=== PATIENT | female | born 1980 | race Caucasian/White ===

== ENCOUNTER 2016-07-09 09:15 | Observation (INO) | payer MEDICAID ==
[2016-07-09 09:44] LABS: RBC URINE < 1 /hpf (0-3); URINE BILIRUBIN NEGATIVE (NEGATIVE); URINE BLOOD NEGATIVE (NEGATIVE); URINE COLOR Yellow (YELLOW); URINE GLUCOSE (UA) NORMAL (Normal); URINE KETONE NEGATIVE (NEGATIVE); URINE LEUKOCYTE ESTERASE NEG Leu/uL (Negative); URINE PROTEIN NEGATIVE (NEGATIVE); URINE UROBILINOGEN NORMAL mg/dL (0.2-1.0); WBC URINE 1 /hpf (0-5)
[2016-07-09] MEDS ORDERED: Betamethasone Soluspan 30 mg/5mL Inj Susp IM SCH (11:30)
[2016-07-09] MEDS ORDERED: Prenatal Multivit/Folic Acid/Iron Tab PO SCH (11:30)
[2016-07-09] MEDS ORDERED: Lactated Ringer's 1,000 ML IV SCH (11:30)
[2016-07-09] MEDS ORDERED: Magnesium Sulfate 20 gm 500 ML IV SCH ×2 (12:00→15:00)
[2016-07-09 12:19] LABS: BASO % 0.4 % (0.0-2.0); EOS # 0.5 K/uL (0.0-0.7); EOS % 4.5 % (0.0-4.0); HEMATOCRIT 31.3 % (34.0-47.0); LYMPH # 1.8 K/uL (1.0-4.3); LYMPH % 15.5 % (20.0-40.0); MEAN CELL VOLUME 76.1 fL (81.0-99.0); MEAN CORPUSCULAR HEMOGLOBIN 23.7 pg (27.0-31.0); MEAN CORPUSCULAR HGB CONC 31.2 g/dL (33.0-37.0); MEAN PLATELET VOLUME 8.6 fL (7.2-11.7); MONO # 0.5 K/uL (0.0-0.8); MONO % 4.5 % (0.0-10.0); RED CELL DISTRIBUTION WIDTH 14.6 % (11.5-14.5); WHITE BLOOD COUNT 11.7 K/uL (4.8-10.8)
[2016-07-09 12:24] LABS: CHLORIDE 105 mmol/L (98-107)
[2016-07-09 12:25] LABS: SODIUM 136 mmol/L (132-148)
[2016-07-09] MEDS ORDERED: Magnesium Sulfate 20 gm 500 ML IV ONE (12:25)
[2016-07-09 12:27] LABS: GFR AFRICAN-AMERICAN > 60
[2016-07-09 12:28] LABS: ALB/GLOB RATIO 1.1 (1.0-2.1); ALKALINE PHOSPHATASE 86 U/L (38-126); ALT/SGPT 16 U/L (9-52); AST/SGOT 17 U/L (14-36); BILIRUBIN,TOTAL 0.2 mg/dL (0.2-1.3); BLOOD UREA NITROGEN 4 mg/dL (7-17); CALCIUM 8.6 mg/dl (8.6-10.4); CARBON DIOXIDE 20 mmol/L (22-30); GLUCOSE,RANDOM 78 mg/dL (65-105); TOTAL PROTEIN 6.8 g/dL (6.3-8.3)
--- NOTE | 2016-07-09 14:12 | OBADHP ---
Datetime: 07/09/2016 11:01 IP Adm Impression Other: Threatened labor; advanced maternal agehistory o f delivery Admit Comment, IP Provider: 36 y.o. P2113, LMP unsure, ROSALIND 09/08/16, EGA 31w 2d by sono 03/06/16 at 1 3w 3d, c/o sudden onset upperabdomnal pain, onset 0700 hours, noted when arising to void; described a s a tightening sensation and radiating to her back. Pain scale 10/10; improved after eating a banana. (+) nausea; denies vomiting. This is the first time with such pain. This pain has resolved at this t parker. Also, onset of pelvic pressure 0730 hours; pain scale 10/10; "feels like contractions"; pain sca le 6/10 at this time. Last had sexual intercourse 2 weeks ago. (+) AFM; denies LOF, VB. issu es: [facility], since . 1) H/O delivery, on weekly Neleima injections. 2) G BS bacteriuria 02/2016, treated. 3) AMA, declined amniocentesis; 4) advanced paternal, with h/o early stroke (thrombophilia status unknown). 4) anemia P Ob: x 3: 2006, FT, male 7lb 10oz; 2008, female, 8lb 10oz, FT; no complications x 2. 2009, pr eterm at 35+/36 weeks, female, 4lb 6oz - no adverse sequellae. All births in [place]. 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 Denies h/o STIs or abnormal Pap. PMH: Adult-onset asthma; never intubated or hospitalized nor on steroids. Allergic rhinitis PSH: denies Allergies: aspirin and amoxicillin = rash, pruritus, hives Meds: PNV, claritin - QD; iron - BID; [place] - weekly Soc Hx: denies tobacco, illicit drug or EtOH use. 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 Fam Hx: Mother alive 62 y.o. HTN. Father alive 59 y.o. bronchitis. P.E.: as above. Small, in NAD. Awake, alert, oriented to time, person and place. Pleasant and coop erative. Assessment: 36 yo P2113, 31w 2d, h/o del at 35+ week, uterine contractions; threatened pre term labor. Category 1 tracing. Case was discussed with MFM, Dr. Jhonny Hodges: who recommends the foll owing and which was discussed with the patient: 1) magnesium sulphate for tocolysis/neuroprotection; 2) administer celestone; 3) repeat urine culture. S/P treatment for GBS bacteriuria. NB: today's U/A negative. 4) Observe. Patient is clinically stable. Plan: 1) Admit 2) NPO 3) IVFs 4) CBC, comp panel, U/A; urine for C_S, GC, chlamydia 5) Continuous EFM Pelvic Type - PN: Adequate Extremities - PN: Normal Abdomen - PN: Normal Back - PN: Normal Breast - PN: Not Done Lungs - PN: Normal Heart - PN: Normal Thyroid - PN: Not Done Neurologic - PN: Normal HEENT - PN: Normal General - PN: Normal Presentation-Admit: Vertex FHR - Baseline A Provider: 145 Membranes, Provider: Intact Contraction Comments Provider: irregular Comments, ACOG Physical Exam: Abdomen: no epigastric, RUQ pain elicited. Fundal height 31 cm All other systems reviewed and are negative Gestation - Est Wks by US: 31w 2d IP Hx Assessment: The History has been Reviewed and is Current Vital Signs Provider: Reviewed IP Chief Complaint: Uterine contractions NICHD Variability Prov Fetus A: Moderate 6-25bpm NICHD Accel Fetus A IP Provider: 15X15 FHR Category Provider Fetus A: Category I NICHD Decel Fetus A IP Provider: None Dilatation, Provider: FT Effacement, Provider: long Station, Provider: -3 Genitourinary Exam: Normal DTRs - PN: Not Done EGA AdmitDate IP: 17.4 IP Adm Impression: , intrauterine IP Admit Plan: Admit to unit
--- NOTE | 2016-07-09 14:21 | OBPN ---
Datetime: 07/09/2016 12:55 Contraction Comments Provider: 6-7 minutes FHR - Baseline A Provider: 135 Gestation - Est Wks by US: 31w 2d Presentation-Admit: Vertex IP Progress Note Comment: Patient reports contractions are improving. S/P magnesium sulphate load - feels warm. V.E.: as above. Assessment: 36 yo P2113, 31w 2d, prev PT del at 36 week. continued contractions with some cervical change on magensium sulphate. Category 1 tracing. Clinically stable. Plan: 1) Continue present management 2) Re-examine in 1-2 hours NICHD Accel Fetus A IP Provider: 15X15 FHR Category Provider Fetus A: Category I NICHD Variability Prov Fetus A: Moderate 6-25bpm Dilatation, Provider: 1 Effacement, Provider: 30 Station, Provider: -3 NICHD Decel Fetus A IP Provider: None Datetime: 07/09/2016 11:01 Membranes, Provider: Intact Vital Signs Provider: Reviewed
[2016-07-09] MEDS ORDERED: Clindamycin 600mg/50ml D5W 50 ML IVPB ONE (14:41)
[2016-07-09] MEDS ORDERED: Clindamycin 600mg/50ml D5W 50 ML IVPB SCH ×2 (15:00→22:00)
--- NOTE | 2016-07-09 15:34 | OBPN ---
Datetime: 07/09/2016 14:24 IP Progress Impression Other: Advanced maternal age; previous delivery; threatened PTL IP Progress Plan: Transfer Contraction Comments Provider: 2-6 FHR - Baseline A Provider: 140 Gestation - Est Wks by US: 31w 2d IP Progress Note Comment: Patient reports feeling contractions for only 10 sec at a time; pain scale not provided. (+) AFM. V.E.: as above Assessment: 36 yo P2113, 31w 2d, threatened labor; h/o delivery - magnesium sulpha te making cervical change. Category 1 tracing. Clinically stable. Plan: 1) Re-consult MFM 2) Cleocin 600 mg IV, now 3) Continue observation Addendum: 1515 hours - Case discussed with Dr. Hodges: he will accept the patient as a transfer to [facility] for Level III care of if patient progresses in labor. This was explained to patient; she expressed an understanding and agrees with the plan. 1) Transfer to [facility] Vital Signs Provider: Reviewed; Within Normal Limits NICHD Accel Fetus A IP Provider: 15X15 FHR Category Provider Fetus A: Category I NICHD Variability Prov Fetus A: Moderate 6-25bpm Dilatation, Provider: 2 Effacement, Provider: 40 Station, Provider: -3 NICHD Decel Fetus A IP Provider: None
== END 2016-07-09 16:34 | disposition short-term general hospital (02) ==
LOC: C.EROB 09:15 → C.4D 11:24 → INTOOBSV 11:24
PROVIDERS: ADMIT Obstetrics & Gynecology; ATTEND Obstetrics & Gynecology
DX: O60.03 Preterm labor without delivery, third trimester (principal); O09.213 Supervision of pregnancy with history of pre-term labor, third trimester; O99.013 Anemia complicating pregnancy, third trimester; Z3A.31 31 weeks gestation of pregnancy; O09.523 Supervision of elderly multigravida, third trimester
CPT/HCPCS: 59025; 80053; 80324; 80345; 80346; 80349; 80353; 80358; 80361; 81001; 83992; 85025; 86592; 86850; 86900; 87086; 87491; 87591; 96372; 99284; G0378; J0702; J3475; J7120